=== PATIENT | male | born 1950 | race African-American/Black ===

== ENCOUNTER 2021-06-24 15:56 | Inpatient (IN) | payer SELFPAY ==
[~2021-06-24] VITALS: Ht 190.5 cm; Wt 119.6 kg
--- NOTE | 2021-06-24 16:46 | PHYS DOC ---
Past Medical History Past Surgical History: No Surgical History General Adult EDM: Chief Complaint: LOWER EXTREMITY EDEMA HPI: HPI: Patient is a 71 year old male who presents for evaluation of several weeks of progressively worsening all over body swelling. He has not seen a physician in almost 50 years. He went to the walk-in clinic at [facility], and he was recommended to be seen in the ER. I spoke with the PA who evaluated him, sent him to the ER for further evaluation and treatment. The patient reports that he has felt short of breath for several weeks. He denies chest pain. He reports increased swelling of his legs, abdomen, arms and also his scrotum and his penis. He denies any urinary symptoms. He denies cough. He does report exertional dyspnea. He denies fevers or chills. He does not take any uiso-dwn-hsuzgam medications, no prescription medications. He denies use of alcohol, tobacco or illicit drugs. Review of Systems: Review of Systems: See HPI Heart Score: C/O Chest Pain: No Risk Factors: Risk Factors: DM, Current or recent (<one month) smoker, HTN, HLP, family history of CAD, obesity. Risk Scores: Score 0 - 3: 2.5% MACE over next 6 weeks - Discharge Home Score 4 - 6: 20.3% MACE over next 6 weeks - Admit for Clinical Observation Score 7 - 10: 72.7% MACE over next 6 weeks - Early Invasive Strategies Physical Exam: PE: Constitutional: Well developed, well nourished, chronically ill-appearing male, no acute distress, nontoxic HENT: Normocephalic, atraumatic, oropharynx is patent and clear. Mucous membranes are moist Eyes: Clear mildly icteric. No conjunctival pallor. No ocular injury noted. Neck: Normal range of motion, no tenderness, supple, no stridor. Trachea is midline. JVD noted. Cardiovascular:Heart rate regular rhythm, 2 radial and +2 posterior tibial pulses bilaterally Lungs & Thorax: Diminished breath sounds in bilateral bases. Fine bibasilar rales. Upper and midlung armstrong are clear to auscultation bilaterally, no wheezes, no stridor. Mild tachypnea. No retractions. Abdomen: Abdomen is tense, diffuse pitting edema of the abdominal wall, moderate abdominal distention, hypoactive bowel sounds, hepatomegaly, no focal tenderness. : Marked scrotal and penis edema. Urethral meatus is patent. No tenderness. Skin: Warm, dry, no erythema, no rash. Diffuse pitting edema of upper and lower extremities, abdomen, chest, scrotum and penis. Back: No tenderness, no CVA tenderness. Full range of motion. Extremities: No tenderness, no cyanosis, no clubbing, ROM intact, heart bilateral, symmetric pitting lower extremity edema, all the way up to his thighs. Neurologic: Alert and oriented X 3, normal motor function, normal sensory function, no focal deficits noted. [] Psychologic: Affect normal, judgement normal, mood normal. He is very pleasant and cooperative. Current Patient Data: Vital Signs: Vital Signs Date Time Temp Pulse Resp B/P (MAP) Pulse Ox O2 Delivery O2 Flow Rate FiO2 06/24/21 16:20 97.5 81 18 145/70 (95) 100 Room Air 97.5 EKG: EKG: [] Radiology/Procedures: Radiology/Procedures: EKG is interpreted at 1719 Rhythm is sinus Rate is 79 bpm Gaffney is left No STEMI Course & Med Decision Making: Course & Med Decision Making Pertinent Labs and Imaging studies reviewed. (See chart for details) I was able to place an ultrasound-guided 18-gauge in his left AC. I obtained blood work for the nursing staff. I discussed the findings, differential diagnosis and plan of care with the patient. I have recommended hospitalization. IV furosemide is given. The patient is comfortable with the plan of care. He is excepted for admission by Dr. Victor. Bam Disclaimer: Bam Disclaimer: This electronic medical record was generated, in whole or in part, using a voice recognition dictation system. Departure Departure Impression: Primary Impression: Anasarca Additional Impressions: Congestive heart failure Qualified Codes: I50.9 - Heart failure, unspecified Renal insufficiency Disposition: ADMITTED INPATIENT Admitting Physician: LUIS (Dr. Victor) Condition: GUARDED EMMAYOLA DO Jun 24, 2021 16:45
[2021-06-24 18:16] LABS: BASO % 0 % (0-3); EOS # 0.1 x10^3/uL (0.0-0.7); EOS % 1 % (0-3); HEMATOCRIT 31.7 % (39.0-53.0); HEMOGLOBIN 9.9 g/dL (13.0-17.5); LYMPH # 0.7 x10^3/uL (1.0-4.8); LYMPH % 10 % (24-48); MEAN CORPUSCULAR HEMOGLOBIN 24 pg (25-35); MEAN CORPUSCULAR HGB CONC 31 g/dL (31-37); MEAN CORPUSCULAR VOLUME 77 fL (79-100); MONO # 0.5 x10^3/uL (0.0-1.1); MONO % 8 % (0-9); NEUT # 5.6 x10^3/uL (1.8-7.7); NEUT % 82 % (31-73); PLATELET COUNT 164 x10^3/uL (140-400); RED BLOOD COUNT 4.14 x10^6/uL (4.30-5.70); RED CELL DISTRIBUTION WIDTH 20.3 % (11.5-14.5); WHITE BLOOD COUNT 6.9 x10^3/uL (4.0-11.0)
--- NOTE | 2021-06-24 18:17 | RAD ---
XR CHEST 1V 06/24/2021 5:04 PM INDICATION: Dyspnea, anasarca COMPARISON: None available TECHNIQUE: Portable frontal view of the chest is provided. FINDINGS: The cardiomediastinal silhouette is enlarged. Lungs are clear. There are no significant pleural effusions. There is no pulmonary vascular congestion. No pneumothora x. No suspicious osseous abnormality. IMPRESSION: Cardiomegaly without focal airspace consolidation. Electronically signed by: Shawna Galaviz MD (06/24/2021 6:15 PM) [facility]
[2021-06-24 18:19] LABS: CALCIUM 8.9 mg/dL (8.5-10.1); CREATININE 1.9 mg/dL (0.7-1.3); GFR 42.4; POTASSIUM 4.2 mmol/L (3.5-5.1)
[2021-06-24 18:20] LABS: PROTHROMBIN TIME PATIENT 15.5 SEC (11.7-14.0)
[2021-06-24 18:25] LABS: ALBUMIN 3.5 g/dL (3.4-5.0); ALBUMIN/GLOBULIN RATIO 1.1 (1.0-1.7); MAGNESIUM 2.3 mg/dL (1.8-2.4); PHOSPHORUS 4.1 mg/dL (2.6-4.7); TOTAL BILIRUBIN 2.1 mg/dL (0.2-1.0); TOTAL PROTEIN 6.7 g/dL (6.4-8.2)
[2021-06-24 19:45] VITALS: BP 156/83
[2021-06-24 20:12] LABS: PLT ESTIMATE ADEQUATE (ADEQUATE)
[2021-06-24 20:13] LABS: ANISOCYTOSIS MOD; HYPOCHROMIA SLIGHT; POIKILOCYTOSIS MOD
[2021-06-24 20:14] LABS: BIZZARE CELLS FEW; OVALOCYTES MOD; SCHISTOCYTES FEW; TARGET CELLS FEW
[2021-06-24 20:15] LABS: POLYCHROMASIA SLIGHT; SPHEROCYTES FEW
[2021-06-24] MEDS ORDERED: MAGNESIUM HYDROXIDE 2,400 MG/30 ML ORAL.SUSP. PO PRN (21:45)
[2021-06-24] MEDS ORDERED: MAG HYDROX/ALUMINUM HYD/SIMETH 30 ML ORAL.SUSP PO PRN (21:45)
[2021-06-24] MEDS ORDERED: ACETAMINOPHEN 325 MG TABLET. PO PRN (21:45)
[2021-06-24] MEDS ORDERED: HYDROcodone/APAP 5/325MG 1 TAB TABLET PO PRN (21:45)
[2021-06-24] MEDS ORDERED: ONDANSETRON PF 4 MG/2 ML VIAL. IVP PRN (21:45)
[2021-06-24] MEDS ORDERED: hydrALAZINE 20 MG/ML VIAL. IVP PRN (21:45)
[2021-06-24] MEDS ORDERED: CALCIUM CARBONATE 500 MG TAB.CHEW PO PRN (21:45)
[2021-06-24] MEDS ORDERED: ZOLPIDEM 5 MG TABLET. PO PRN (21:45)
[2021-06-24] MEDS ORDERED: FUROSEMIDE 20 MG/2 ML VIAL. IVP ONE (21:45)
--- NOTE | 2021-06-24 21:53 | PDOC1 ---
History and Physical Date of Admission Date of Admission DATE: 06/24/21 TIME: 21:39 Identification/Chief Complaint Chief Complaint Anasarca Source Source: Patient History of Present Illness History of Present Illness Patient is 71-year-old male with no stated past medical history, who presents with complaints of generalized swelling over the past couple weeks. Patient also reports dyspnea on exertion and progressive weakness. States he has not seen a physician in over 50 years. Today he finally went to [facility] walk-in clinic, and was referred to [facility] ED. Labs on admission showed hemoglobin 9.9, hematocrit 31.7, BUN 27, creatinine 1.9, BNP 28,988. Chest x-ray showed cardiomegaly without focal airspace consolidation. Will admit patient for further medical management. Past Medical History Past Medical History No stated past medical history Past Surgical History Past Surgical History Left foot surgery Family History Family History Renal failure Social History Smoke: Quit ALCOHOL: none Drugs: None Current Problem List Problem List Problems Medical Problems: (1) Anasarca Status: Acute (2) Congestive heart failure Status: Acute (3) Renal insufficiency Status: Acute Current Medications Current Medications Current Medications Furosemide (Lasix) 20 mg 1X ONCE IVP ; Start 06/24/21 at 19:15; Stop 06/24/21 at 19:16; Status UNV Allergies Allergies: Coded Allergies: No Known Drug Allergies (Unverified , 06/24/21) ROS Review of System GENERAL: No history of weight change, weakness or fevers. SKIN: No bruising, hair changes or rashes. EYES: No blurred, double or loss of vision. NOSE AND THROAT: No history of nosebleeds, hoarseness or sore throat. HEART: Denies chest pain, denies palpitations. LUNGS: Denies cough, hemoptysis, or wheezing. Dyspnea on exertion. GASTROINTESTINAL: Denies nausea, vomiting, abdominal pain. GENITOURINARY: Denies dysuria, frequency, urgency, hematuria. NEUROLOGIC: Denies history of numbness, tingling, tremor or weakness. PSYCHIATRIC: Denies anxiety, denies depression. ENDOCRINE: No history of heat or cold intolerance, polyuria or polydipsia. EXTREMITIES: Swelling of bilateral legs and bilateral hands. Musculoskeletal weakness. Denies joint pain, pain on walking or stiffness. Physical Exam Physical Exam General: Alert, Oriented X3, Cooperative, no distress HEENT: Atraumatic, EOMI Lungs: Decreased breath sounds bilaterally, bibasilar rales Heart: RRR, no rubs Cardiovascular: S1, S2 Abdomen: Normal bowel sounds, Soft, No tenderness Extremities: +2 bilateral leg edema Skin: No breakdown, No significant lesion Neuro: Normal speech, Sensation intact Psych/Mental Status: Mental status NL, Mood NL Vitals Vitals Vital Signs Date Time Temp Pulse Resp B/P (MAP) Pulse Ox O2 Delivery O2 Flow Rate FiO2 06/24/21 20:00 Room Air 06/24/21 19:45 97.1 82 20 156/83 (107) 100 97.1 Labs Labs Laboratory Tests Test 06/24/21 17:55 White Blood Count 6.9 x10^3/uL (4.0-11.0) Red Blood Count 4.14 x10^6/uL (4.30-5.70) Hemoglobin 9.9 g/dL (13.0-17.5) Hematocrit 31.7 % (39.0-53.0) Mean Corpuscular Volume 77 fL (79-100) Mean Corpuscular Hemoglobin 24 pg (25-35) Mean Corpuscular Hemoglobin Concent 31 g/dL (31-37) Red Cell Distribution Width 20.3 % (11.5-14.5) Platelet Count 164 x10^3/uL (140-400) Neutrophils (%) (Auto) 82 % (31-73) Lymphocytes (%) (Auto) 10 % (24-48) Monocytes (%) (Auto) 8 % (0-9) Eosinophils (%) (Auto) 1 % (0-3) Basophils (%) (Auto) 0 % (0-3) Neutrophils # (Auto) 5.6 x10^3/uL (1.8-7.7) Lymphocytes # (Auto) 0.7 x10^3/uL (1.0-4.8) Monocytes # (Auto) 0.5 x10^3/uL (0.0-1.1) Eosinophils # (Auto) 0.1 x10^3/uL (0.0-0.7) Basophils # (Auto) 0.0 x10^3/uL (0.0-0.2) Platelet Estimate Adequate (ADEQUATE) Polychromasia Slight Hypochromasia Slight Poikilocytosis Mod Anisocytosis Mod Spherocytes Few Target Cells Few Ovalocytes Mod Schistocytes Few RBC Morphology Bizarre Forms Few Prothrombin Time 15.5 SEC (11.7-14.0) Prothromb Time International Ratio 1.3 (0.8-1.1) Activated Partial Thromboplast Time 29 SEC (24-38) Sodium Level 145 mmol/L (136-145) Potassium Level 4.2 mmol/L (3.5-5.1) Chloride Level 111 mmol/L (98-107) Carbon Dioxide Level 23 mmol/L (21-32) Anion Gap 11 (6-14) Blood Urea Nitrogen 27 mg/dL (8-26) Creatinine 1.9 mg/dL (0.7-1.3) Estimated GFR (Cockcroft-Gault) 42.4 BUN/Creatinine Ratio 14 (6-20) Glucose Level 85 mg/dL (70-99) Calcium Level 8.9 mg/dL (8.5-10.1) Phosphorus Level 4.1 mg/dL (2.6-4.7) Magnesium Level 2.3 mg/dL (1.8-2.4) Total Bilirubin 2.1 mg/dL (0.2-1.0) Aspartate Amino Transf (AST/SGOT) 27 U/L (15-37) Alanine Aminotransferase (ALT/SGPT) 17 U/L (16-63) Alkaline Phosphatase 41 U/L (46-116) Creatine Kinase 120 U/L (39-308) Troponin I High Sensitivity 56 ng/L (4-75) CW-Cpj-M-Type Natriuretic Peptide 54070 pg/mL (0-124) Total Protein 6.7 g/dL (6.4-8.2) Albumin 3.5 g/dL (3.4-5.0) Albumin/Globulin Ratio 1.1 (1.0-1.7) Laboratory Tests Test 06/24/21 17:55 White Blood Count 6.9 x10^3/uL (4.0-11.0) Red Blood Count 4.14 x10^6/uL (4.30-5.70) Hemoglobin 9.9 g/dL (13.0-17.5) Hematocrit 31.7 % (39.0-53.0) Mean Corpuscular Volume 77 fL (79-100) Mean Corpuscular Hemoglobin 24 pg (25-35) Mean Corpuscular Hemoglobin Concent 31 g/dL (31-37) Red Cell Distribution Width 20.3 % (11.5-14.5) Platelet Count 164 x10^3/uL (140-400) Neutrophils (%) (Auto) 82 % (31-73) Lymphocytes (%) (Auto) 10 % (24-48) Monocytes (%) (Auto) 8 % (0-9) Eosinophils (%) (Auto) 1 % (0-3) Basophils (%) (Auto) 0 % (0-3) Neutrophils # (Auto) 5.6 x10^3/uL (1.8-7.7) Lymphocytes # (Auto) 0.7 x10^3/uL (1.0-4.8) Monocytes # (Auto) 0.5 x10^3/uL (0.0-1.1) Eosinophils # (Auto) 0.1 x10^3/uL (0.0-0.7) Basophils # (Auto) 0.0 x10^3/uL (0.0-0.2) Platelet Estimate Adequate (ADEQUATE) Polychromasia Slight Hypochromasia Slight Poikilocytosis Mod Anisocytosis Mod Spherocytes Few Target Cells Few Ovalocytes Mod Schistocytes Few RBC Morphology Bizarre Forms Few Prothrombin Time 15.5 SEC (11.7-14.0) Prothromb Time International Ratio 1.3 (0.8-1.1) Activated Partial Thromboplast Time 29 SEC (24-38) Sodium Level 145 mmol/L (136-145) Potassium Level 4.2 mmol/L (3.5-5.1) Chloride Level 111 mmol/L (98-107) Carbon Dioxide Level 23 mmol/L (21-32) Anion Gap 11 (6-14) Blood Urea Nitrogen 27 mg/dL (8-26) Creatinine 1.9 mg/dL (0.7-1.3) Estimated GFR (Cockcroft-Gault) 42.4 BUN/Creatinine Ratio 14 (6-20) Glucose Level 85 mg/dL (70-99) Calcium Level 8.9 mg/dL (8.5-10.1) Phosphorus Level 4.1 mg/dL (2.6-4.7) Magnesium Level 2.3 mg/dL (1.8-2.4) Total Bilirubin 2.1 mg/dL (0.2-1.0) Aspartate Amino Transf (AST/SGOT) 27 U/L (15-37) Alanine Aminotransferase (ALT/SGPT) 17 U/L (16-63) Alkaline Phosphatase 41 U/L (46-116) Creatine Kinase 120 U/L (39-308) Troponin I High Sensitivity 56 ng/L (4-75) PY-Zgb-D-Type Natriuretic Peptide 23229 pg/mL (0-124) Total Protein 6.7 g/dL (6.4-8.2) Albumin 3.5 g/dL (3.4-5.0) Albumin/Globulin Ratio 1.1 (1.0-1.7) Images Images PATIENT: PADMINI PATELCCOUNT: [id number] : 1950 LOCATION: ER AGE: 71 SEX: M EXAM STATUS: REG ER ORD. PHYSICIAN: YOLA CARTER DO REASON: dyspnea, anasarca PROCEDURE: PORTABLE CHEST 1V XR CHEST 1V 06/24/2021 5:04 PM INDICATION: Dyspnea, anasarca COMPARISON: None available TECHNIQUE: Portable frontal view of the chest is provided. FINDINGS: The cardiomediastinal silhouette is enlarged. Lungs are clear. There are no significant pleural effusions. There is no pulmonary vascular congestion. No pneumothorax. No suspicious osseous abnormality. IMPRESSION: Cardiomegaly without focal airspace consolidation. VTE Prophylaxis Ordered VTE Prophylaxis Devices: No VTE Pharmacological Prophylaxi: Yes Assessment/Plan Assessment/Plan New onset CHF Normocytic anemia [place] Plan: Patient received dose of IV Lasix in the ED Will place consultation to cardiology Echocardiogram pending If his renal function began to worsen with IV Lasix we will need to consult nephrology for CKD 3b in setting of heart failure FEN - Cardiac diet PPX - Heparin DNR/patient names his sister (Sarah Menchaca) as surrogate decision-maker Dispo - inpatient for above Justifications for Admission Other Justification ALEX MASSEY MD Jun 24, 2021 21:53
[2021-06-24] MEDS: HEPARIN for SUB-Q USE 5,000 UNIT/ML VIAL. SQ SCH (22:22)
[2021-06-24 23:26] VITALS: BP 147/81
[2021-06-25 03:10] VITALS: BP 170/85
[2021-06-25 03:26] LABS: BASO % 0 % (0-3); EOS % 1 % (0-3); HEMATOCRIT 33.2 % (39.0-53.0); HEMOGLOBIN 10.5 g/dL (13.0-17.5); LYMPH # 0.6 x10^3/uL (1.0-4.8); LYMPH % 8 % (24-48); MEAN CORPUSCULAR HEMOGLOBIN 24 pg (25-35); MEAN CORPUSCULAR HGB CONC 32 g/dL (31-37); MEAN CORPUSCULAR VOLUME 77 fL (79-100); MONO # 0.4 x10^3/uL (0.0-1.1); MONO % 6 % (0-9); NEUT % 85 % (31-73); PLATELET COUNT 168 x10^3/uL (140-400); RED CELL DISTRIBUTION WIDTH 19.5 % (11.5-14.5); WHITE BLOOD COUNT 7.1 x10^3/uL (4.0-11.0)
[2021-06-25 04:15] LABS: CALCIUM 9.2 mg/dL (8.5-10.1); CREATININE 1.9 mg/dL (0.7-1.3); GFR 42.4; POTASSIUM 4.1 mmol/L (3.5-5.1)
[2021-06-25 04:20] LABS: CHOLESTEROL/HDL RATIO 4.1
[2021-06-25] MEDS: HEPARIN for SUB-Q USE 5,000 UNIT/ML VIAL. SQ SCH ×3 (05:37→22:32)
[2021-06-25 07:00] VITALS: BP 167/86
[2021-06-25 10:46] VITALS: BP 120/81
--- NOTE | 2021-06-25 10:47 | PDOC ---
[employer] PROGRESS NOTE Date of Service DOS: DATE: 06/25/21 TIME: 10:30 Chief Complaint Chief Complaint New onset CHF Normocytic anemia [place] - likely vasomotor nephropathy. Will check renal ultrasound for obstructive or medical renal disease Plan: Will place consultation to cardiology Echocardiogram pending If his renal function began to worsen with IV Lasix we will need to consult nephrology for CKD 3b in setting of heart failure FEN - Cardiac diet PPX - Heparin DNR/patient names his sister (Sarah Menchaca) as surrogate decision-maker Dispo - inpatient for above History of Present Illness History of Present Illness Patient is 71-year-old male with no stated past medical history, who presents with complaints of generalized swelling over the past couple weeks. Patient also reports dyspnea on exertion and progressive weakness. States he has not seen a physician in over 50 years. Today he finally went to [facility] walk-in clinic, and was referred to [facility] ED. Labs on admission showed hemoglobin 9.9, hematocrit 31.7, BUN 27, creatinine 1.9, BNP 28,988. Chest x-ray showed cardiomegaly without focal airspace consolidation. Will admit patient for further medical management. 06/25: Notes historically he has a younger brother that of kidney disease father and older brother had heart disease. Still short of breath requiring sitting up. Legs are still swollen. Creatinine the same. Awaiting echocardiogram and further IV diuresis will order renal ultrasound as patient notes no history of renal disease though is the first time he seen a physician in a long time. By my interpretation EKG sinus rate of 79 bpm [place] interval 310, leftward axis meets criteria for LVH T wave flattening and anterior and inferior leads no T WI, no ST segment elevations or depressions. QTC 444 Vitals/I&O Vitals/I&O: Vital Signs Date Time Temp Pulse Resp B/P (MAP) Pulse Ox O2 Delivery O2 Flow Rate FiO2 06/25/21 08:00 Room Air 06/25/21 07:00 97.8 94 16 167/86 (113) 99 97.8 I & O 06/24/21 06/24/21 06/25/21 15:00 23:00 07:00 Intake Total 50 ml 60 ml Output Total 100 ml 2100 ml Balance -50 ml -2040 ml Physical Exam General: Alert, Oriented X3, Cooperative, mild distress Heart: Regular rate, Normal S1, Normal S2 Lungs: Crackles Abdomen: Normal bowel sounds, Soft, No tenderness, No hepatosplenomegaly Extremities: No clubbing, No cyanosis, Normal pulses Skin: No rashes, No breakdown, No significant lesion Labs Labs: Laboratory Tests Test 06/24/21 17:55 06/25/21 03:00 White Blood Count 6.9 x10^3/uL (4.0-11.0) 7.1 x10^3/uL (4.0-11.0) Red Blood Count 4.14 x10^6/uL (4.30-5.70) 4.30 x10^6/uL (4.30-5.70) Hemoglobin 9.9 g/dL (13.0-17.5) 10.5 g/dL (13.0-17.5) Hematocrit 31.7 % (39.0-53.0) 33.2 % (39.0-53.0) Mean Corpuscular Volume 77 fL (79-100) 77 fL (79-100) Mean Corpuscular Hemoglobin 24 pg (25-35) 24 pg (25-35) Mean Corpuscular Hemoglobin Concent 31 g/dL (31-37) 32 g/dL (31-37) Red Cell Distribution Width 20.3 % (11.5-14.5) 19.5 % (11.5-14.5) Platelet Count 164 x10^3/uL (140-400) 168 x10^3/uL (140-400) Neutrophils (%) (Auto) 82 % (31-73) 85 % (31-73) Lymphocytes (%) (Auto) 10 % (24-48) 8 % (24-48) Monocytes (%) (Auto) 8 % (0-9) 6 % (0-9) Eosinophils (%) (Auto) 1 % (0-3) 1 % (0-3) Basophils (%) (Auto) 0 % (0-3) 0 % (0-3) Neutrophils # (Auto) 5.6 x10^3/uL (1.8-7.7) 6.0 x10^3/uL (1.8-7.7) Lymphocytes # (Auto) 0.7 x10^3/uL (1.0-4.8) 0.6 x10^3/uL (1.0-4.8) Monocytes # (Auto) 0.5 x10^3/uL (0.0-1.1) 0.4 x10^3/uL (0.0-1.1) Eosinophils # (Auto) 0.1 x10^3/uL (0.0-0.7) 0.0 x10^3/uL (0.0-0.7) Basophils # (Auto) 0.0 x10^3/uL (0.0-0.2) 0.0 x10^3/uL (0.0-0.2) Platelet Estimate Adequate (ADEQUATE) Polychromasia Slight Hypochromasia Slight Poikilocytosis Mod Anisocytosis Mod Spherocytes Few Target Cells Few Ovalocytes Mod Schistocytes Few RBC Morphology Bizarre Forms Few Prothrombin Time 15.5 SEC (11.7-14.0) Prothromb Time International Ratio 1.3 (0.8-1.1) Activated Partial Thromboplast Time 29 SEC (24-38) Sodium Level 145 mmol/L (136-145) 143 mmol/L (136-145) Potassium Level 4.2 mmol/L (3.5-5.1) 4.1 mmol/L (3.5-5.1) Chloride Level 111 mmol/L (98-107) 110 mmol/L (98-107) Carbon Dioxide Level 23 mmol/L (21-32) 21 mmol/L (21-32) Anion Gap 11 (6-14) 12 (6-14) Blood Urea Nitrogen 27 mg/dL (8-26) 30 mg/dL (8-26) Creatinine 1.9 mg/dL (0.7-1.3) 1.9 mg/dL (0.7-1.3) Estimated GFR (Cockcroft-Gault) 42.4 42.4 BUN/Creatinine Ratio 14 (6-20) Glucose Level 85 mg/dL (70-99) 75 mg/dL (70-99) Calcium Level 8.9 mg/dL (8.5-10.1) 9.2 mg/dL (8.5-10.1) Phosphorus Level 4.1 mg/dL (2.6-4.7) Magnesium Level 2.3 mg/dL (1.8-2.4) Total Bilirubin 2.1 mg/dL (0.2-1.0) Aspartate Amino Transf (AST/SGOT) 27 U/L (15-37) Alanine Aminotransferase (ALT/SGPT) 17 U/L (16-63) Alkaline Phosphatase 41 U/L (46-116) Creatine Kinase 120 U/L (39-308) Troponin I High Sensitivity 56 ng/L (4-75) NB-Ocu-J-Type Natriuretic Peptide 66522 pg/mL (0-124) Total Protein 6.7 g/dL (6.4-8.2) Albumin 3.5 g/dL (3.4-5.0) Albumin/Globulin Ratio 1.1 (1.0-1.7) Triglycerides Level 80 mg/dL (0-150) Cholesterol Level 138 mg/dL (0-200) LDL Cholesterol, Calculated 88 mg/dL (0-100) VLDL Cholesterol, Calculated 16 mg/dL (0-40) Non-HDL Cholesterol Calculated 104 mg/dL (0-129) HDL Cholesterol 34 mg/dL (40-60) Cholesterol/HDL Ratio 4.1 Assessment and Plan Assessmemt and Plan Problems Medical Problems: (1) Anasarca Status: Acute (2) Congestive heart failure Status: Acute (3) Renal insufficiency Status: Acute Comment Review of Relevant I have reviewed the following items delfina (where applicable) has been applied. Medications: Current Medications Medications (Trade) Dose Ordered Sig/Vidhi Route PRN Reason Start Time Stop Time Status Last Admin Dose Admin Furosemide (Lasix) 20 mg 1X ONCE IVP 06/24/21 21:45 06/24/21 21:46 DC 06/24/21 22:21 Hydralazine HCl (Apresoline Inj) 10 mg PRN Q4HRS PRN IVP ELEVATED BP, SEE COMMENTS 06/24/21 21:45 06/25/21 02:52 Heparin Sodium (Porcine) (Heparin Sodium) 5,000 unit Q8HRS SQ 06/24/21 22:00 06/25/21 05:37 Justifications for Admission Other Justification MARGOT BROWN MD Jun 25, 2021 10:47
[2021-06-25] MEDS ORDERED: FUROSEMIDE 40 MG/4 ML VIAL. IVP ONE (11:00)
--- NOTE | 2021-06-25 11:07 | PDOC2 ---
CONSULT Date of Consult Date of Consult DATE: 06/25/21 TIME: 11:06 Reason for Consult Reason for Consult: Congestive heart failure Referring Physician Referring Physician: Dr. Victor Identification/Chief Complaint Chief Complaint Shortness of breath Source Source: Chart review, Patient History of Present Illness Reason for Visit: 71-year-old male without any previous cardiac history presented with approximately 2-month history of progressive shortness of breath with exertion and bilateral lower extremity edema. He denied any chest pain, palpitations or syncope. He was diagnosed with congestive heart failure and admitted for further management Past Medical History Cardiovascular: No pertinent hx Past Surgical History Past Surgical History: No pertinent history Family History Family History No history of premature coronary artery disease Social History No ALCOHOL: none Drugs: None Current Problem List Problem List Problems Medical Problems: (1) Anasarca Status: Acute (2) Congestive heart failure Status: Acute (3) Renal insufficiency Status: Acute Current Medications Current Medications Current Medications Furosemide (Lasix) 20 mg 1X ONCE IVP Last administered on 06/24/21at 22:21; Start 06/24/21 at 21:45; Stop 06/24/21 at 21:46; Status DC Hydralazine HCl (Apresoline Inj) 10 mg PRN Q4HRS PRN IVP ELEVATED BP, SEE COMMENTS Last administered on 06/25/21at 02:52; Start 06/24/21 at 21:45 Ondansetron HCl (Zofran) 4 mg PRN Q6HRS PRN IVP NAUSEA/VOMITING; Start 06/24/21 at 21:45 Al Hydroxide/Mg Hydroxide (Mylanta Plus Xs) 30 ml PRN Q3HRS PRN PO HEARTBURN / GAS; Start 06/24/21 at 21:45 Calcium Carbonate/ Glycine (Tums) 500 mg PRN Q3HRS PRN PO UPSET STOMACH; Start 06/24/21 at 21:45 Zolpidem Tartrate (Ambien) 5 mg PRN QHS PRN PO INSOMNIA, MAY REPEAT IN 1HR; Start 06/24/21 at 21:45 Acetaminophen/ Hydrocodone Bitart (Lortab 5/325) 1 tab PRN Q4HRS PRN PO MILD PAIN 1-3; Start 06/24/21 at 21:45 Acetaminophen (Tylenol) 650 mg PRN Q6HRS PRN PO Headaches, Temp > 101.5F; Start 06/24/21 at 21:45 Magnesium Hydroxide (Milk Of Magnesia) 2,400 mg PRN Q12HR PRN PO CONSTIPATION; Start 06/24/21 at 21:45 Heparin Sodium (Porcine) (Heparin Sodium) 5,000 unit Q8HRS SQ Last administered on 06/25/21at 05:37; Start 06/24/21 at 22:00 Furosemide (Lasix) 40 mg 1X ONCE IVP ; Start 06/25/21 at 11:00; Stop 06/25/21 at 11:01; Status DC Allergies Allergies: Coded Allergies: No Known Drug Allergies (Unverified , 06/24/21) ROS PSYCHOLOGICAL ROS: No: Hallucinations Eyes: No Loss of vision HEENT: No: Epistaxis Respiratory: YES: Shortness of breath; No: Hemoptysis Cardiovascular: No Chest Pain Gastrointestinal: No Vomiting Genitourinary: No Hematuria Neurological: No Seizures Skin: No Rash Physical Exam General: Alert, Oriented X3 HEENT: Atraumatic Lungs: Other (Bilateral basal crepitations) Heart: Regular rate Abdomen: Soft Extremities: Other (1-2+ pitting edema) Neuro: Normal speech Psych/Mental Status: Mental status NL Vitals VITALS Vital Signs Date Time Temp Pulse Resp B/P (MAP) Pulse Ox O2 Delivery O2 Flow Rate FiO2 06/25/21 10:46 99.9 98 16 120/81 (94) 98 Room Air 99.9 Labs Labs Laboratory Tests Test 06/24/21 17:55 06/25/21 03:00 White Blood Count 6.9 x10^3/uL (4.0-11.0) 7.1 x10^3/uL (4.0-11.0) Red Blood Count 4.14 x10^6/uL (4.30-5.70) 4.30 x10^6/uL (4.30-5.70) Hemoglobin 9.9 g/dL (13.0-17.5) 10.5 g/dL (13.0-17.5) Hematocrit 31.7 % (39.0-53.0) 33.2 % (39.0-53.0) Mean Corpuscular Volume 77 fL (79-100) 77 fL (79-100) Mean Corpuscular Hemoglobin 24 pg (25-35) 24 pg (25-35) Mean Corpuscular Hemoglobin Concent 31 g/dL (31-37) 32 g/dL (31-37) Red Cell Distribution Width 20.3 % (11.5-14.5) 19.5 % (11.5-14.5) Platelet Count 164 x10^3/uL (140-400) 168 x10^3/uL (140-400) Neutrophils (%) (Auto) 82 % (31-73) 85 % (31-73) Lymphocytes (%) (Auto) 10 % (24-48) 8 % (24-48) Monocytes (%) (Auto) 8 % (0-9) 6 % (0-9) Eosinophils (%) (Auto) 1 % (0-3) 1 % (0-3) Basophils (%) (Auto) 0 % (0-3) 0 % (0-3) Neutrophils # (Auto) 5.6 x10^3/uL (1.8-7.7) 6.0 x10^3/uL (1.8-7.7) Lymphocytes # (Auto) 0.7 x10^3/uL (1.0-4.8) 0.6 x10^3/uL (1.0-4.8) Monocytes # (Auto) 0.5 x10^3/uL (0.0-1.1) 0.4 x10^3/uL (0.0-1.1) Eosinophils # (Auto) 0.1 x10^3/uL (0.0-0.7) 0.0 x10^3/uL (0.0-0.7) Basophils # (Auto) 0.0 x10^3/uL (0.0-0.2) 0.0 x10^3/uL (0.0-0.2) Platelet Estimate Adequate (ADEQUATE) Polychromasia Slight Hypochromasia Slight Poikilocytosis Mod Anisocytosis Mod Spherocytes Few Target Cells Few Ovalocytes Mod Schistocytes Few RBC Morphology Bizarre Forms Few Prothrombin Time 15.5 SEC (11.7-14.0) Prothromb Time International Ratio 1.3 (0.8-1.1) Activated Partial Thromboplast Time 29 SEC (24-38) Sodium Level 145 mmol/L (136-145) 143 mmol/L (136-145) Potassium Level 4.2 mmol/L (3.5-5.1) 4.1 mmol/L (3.5-5.1) Chloride Level 111 mmol/L (98-107) 110 mmol/L (98-107) Carbon Dioxide Level 23 mmol/L (21-32) 21 mmol/L (21-32) Anion Gap 11 (6-14) 12 (6-14) Blood Urea Nitrogen 27 mg/dL (8-26) 30 mg/dL (8-26) Creatinine 1.9 mg/dL (0.7-1.3) 1.9 mg/dL (0.7-1.3) Estimated GFR (Cockcroft-Gault) 42.4 42.4 BUN/Creatinine Ratio 14 (6-20) Glucose Level 85 mg/dL (70-99) 75 mg/dL (70-99) Calcium Level 8.9 mg/dL (8.5-10.1) 9.2 mg/dL (8.5-10.1) Phosphorus Level 4.1 mg/dL (2.6-4.7) Magnesium Level 2.3 mg/dL (1.8-2.4) Total Bilirubin 2.1 mg/dL (0.2-1.0) Aspartate Amino Transf (AST/SGOT) 27 U/L (15-37) Alanine Aminotransferase (ALT/SGPT) 17 U/L (16-63) Alkaline Phosphatase 41 U/L (46-116) Creatine Kinase 120 U/L (39-308) Troponin I High Sensitivity 56 ng/L (4-75) ZD-Odp-A-Type Natriuretic Peptide 70190 pg/mL (0-124) Total Protein 6.7 g/dL (6.4-8.2) Albumin 3.5 g/dL (3.4-5.0) Albumin/Globulin Ratio 1.1 (1.0-1.7) Triglycerides Level 80 mg/dL (0-150) Cholesterol Level 138 mg/dL (0-200) LDL Cholesterol, Calculated 88 mg/dL (0-100) VLDL Cholesterol, Calculated 16 mg/dL (0-40) Non-HDL Cholesterol Calculated 104 mg/dL (0-129) HDL Cholesterol 34 mg/dL (40-60) Cholesterol/HDL Ratio 4.1 Laboratory Tests Test 06/24/21 17:55 06/25/21 03:00 White Blood Count 6.9 x10^3/uL (4.0-11.0) 7.1 x10^3/uL (4.0-11.0) Red Blood Count 4.14 x10^6/uL (4.30-5.70) 4.30 x10^6/uL (4.30-5.70) Hemoglobin 9.9 g/dL (13.0-17.5) 10.5 g/dL (13.0-17.5) Hematocrit 31.7 % (39.0-53.0) 33.2 % (39.0-53.0) Mean Corpuscular Volume 77 fL (79-100) 77 fL (79-100) Mean Corpuscular Hemoglobin 24 pg (25-35) 24 pg (25-35) Mean Corpuscular Hemoglobin Concent 31 g/dL (31-37) 32 g/dL (31-37) Red Cell Distribution Width 20.3 % (11.5-14.5) 19.5 % (11.5-14.5) Platelet Count 164 x10^3/uL (140-400) 168 x10^3/uL (140-400) Neutrophils (%) (Auto) 82 % (31-73) 85 % (31-73) Lymphocytes (%) (Auto) 10 % (24-48) 8 % (24-48) Monocytes (%) (Auto) 8 % (0-9) 6 % (0-9) Eosinophils (%) (Auto) 1 % (0-3) 1 % (0-3) Basophils (%) (Auto) 0 % (0-3) 0 % (0-3) Neutrophils # (Auto) 5.6 x10^3/uL (1.8-7.7) 6.0 x10^3/uL (1.8-7.7) Lymphocytes # (Auto) 0.7 x10^3/uL (1.0-4.8) 0.6 x10^3/uL (1.0-4.8) Monocytes # (Auto) 0.5 x10^3/uL (0.0-1.1) 0.4 x10^3/uL (0.0-1.1) Eosinophils # (Auto) 0.1 x10^3/uL (0.0-0.7) 0.0 x10^3/uL (0.0-0.7) Basophils # (Auto) 0.0 x10^3/uL (0.0-0.2) 0.0 x10^3/uL (0.0-0.2) Platelet Estimate Adequate (ADEQUATE) Polychromasia Slight Hypochromasia Slight Poikilocytosis Mod Anisocytosis Mod Spherocytes Few Target Cells Few Ovalocytes Mod Schistocytes Few RBC Morphology Bizarre Forms Few Prothrombin Time 15.5 SEC (11.7-14.0) Prothromb Time International Ratio 1.3 (0.8-1.1) Activated Partial Thromboplast Time 29 SEC (24-38) Sodium Level 145 mmol/L (136-145) 143 mmol/L (136-145) Potassium Level 4.2 mmol/L (3.5-5.1) 4.1 mmol/L (3.5-5.1) Chloride Level 111 mmol/L (98-107) 110 mmol/L (98-107) Carbon Dioxide Level 23 mmol/L (21-32) 21 mmol/L (21-32) Anion Gap 11 (6-14) 12 (6-14) Blood Urea Nitrogen 27 mg/dL (8-26) 30 mg/dL (8-26) Creatinine 1.9 mg/dL (0.7-1.3) 1.9 mg/dL (0.7-1.3) Estimated GFR (Cockcroft-Gault) 42.4 42.4 BUN/Creatinine Ratio 14 (6-20) Glucose Level 85 mg/dL (70-99) 75 mg/dL (70-99) Calcium Level 8.9 mg/dL (8.5-10.1) 9.2 mg/dL (8.5-10.1) Phosphorus Level 4.1 mg/dL (2.6-4.7) Magnesium Level 2.3 mg/dL (1.8-2.4) Total Bilirubin 2.1 mg/dL (0.2-1.0) Aspartate Amino Transf (AST/SGOT) 27 U/L (15-37) Alanine Aminotransferase (ALT/SGPT) 17 U/L (16-63) Alkaline Phosphatase 41 U/L (46-116) Creatine Kinase 120 U/L (39-308) Troponin I High Sensitivity 56 ng/L (4-75) JR-Bvm-W-Type Natriuretic Peptide 79197 pg/mL (0-124) Total Protein 6.7 g/dL (6.4-8.2) Albumin 3.5 g/dL (3.4-5.0) Albumin/Globulin Ratio 1.1 (1.0-1.7) Triglycerides Level 80 mg/dL (0-150) Cholesterol Level 138 mg/dL (0-200) LDL Cholesterol, Calculated 88 mg/dL (0-100) VLDL Cholesterol, Calculated 16 mg/dL (0-40) Non-HDL Cholesterol Calculated 104 mg/dL (0-129) HDL Cholesterol 34 mg/dL (40-60) Cholesterol/HDL Ratio 4.1 Assessment/Plan Assessment/Plan 1. Congestive heart failure, most probably acute on chronic diastolic. Patient diuresing well with Lasix. Check 2D echo to assess LV systolic function. Plan ischemic evaluation as an outpatient. 2. Acute renal insufficiency: Consider nephrology consultation. Monitor BUN/creatinine closely with diuresis 3. Normocytic anemia Thank you for your consultation MI PRICE MD Jun 25, 2021 11:07
[2021-06-25 15:00] VITALS: BP 168/86
--- NOTE | 2021-06-25 17:39 | EKG ---
[facility] [address] [place] [address] Test Date: 2021-06-24 Test Time: 17:03:43 Pat Name: PADMINI PATEL Department: Room: [facility] Gender: M Tower Director: : 1950 Requested By: YOLA CARTER Order Number: [id number] Reading MD: Miles Horton Measurements Intervals [place] Rate: 79 P: 0 AL: 310 QRS: -15 QRSD: 108 T: 43 QT: 386 QTc: 444 Interpretive Statements SINUS RHYTHM PROLONGED AL INTERVAL LEFTWARD AXIS LEFT VENTRICULAR HYPERTROPHY ABNORMAL ECG RI6.02 No previous ECG available for comparison Electronically Signed On 06-25-2021 21:18:06 CDT by Miles Horton
[2021-06-25 19:09] VITALS: BP 121/72
[2021-06-25 22:59] VITALS: BP 131/74
[2021-06-26 03:13] VITALS: BP 123/66
[2021-06-26 05:02] LABS: CALCIUM 8.6 mg/dL (8.5-10.1); CREATININE 1.9 mg/dL (0.7-1.3); GFR 42.4; POTASSIUM 3.6 mmol/L (3.5-5.1)
[2021-06-26] MEDS: HEPARIN for SUB-Q USE 5,000 UNIT/ML VIAL. SQ SCH ×3 (05:58→20:52)
[2021-06-26 07:00] VITALS: BP 129/74
--- NOTE | 2021-06-26 08:18 | PDOC ---
PROGRESS NOTES Date of Service: DATE: 06/26/21 TIME: 08:17 Subjective Subjective c/o dyspnea and weakness Objective Objective Vital Signs Date Time Temp Pulse Resp B/P (MAP) Pulse Ox O2 Delivery O2 Flow Rate FiO2 06/26/21 07:46 Room Air 06/26/21 03:13 97.7 68 20 123/66 (85) 99 97.7 Intake and Output 06/26/21 07:00 Intake Total 480 ml Output Total 2100 ml Balance -1620 ml Intake Oral 480 ml Output Urine Total 2100 ml # Bowel Movements 1 Physical Exam Abdomen: Soft Heart: Regular rate Extremities: Other (1-2+ pitting edema) General: Alert, Oriented X3 HEENT: Atraumatic Lungs: Other (Bilateral basal crepitations) Neuro: Normal speech Psych/Mental Status: Mental status NL Skin: No rashes, No breakdown, No significant lesion Assessment Assessment 1. Congestive heart failure, most probably acute on chronic diastolic. Improved but continues to be slightly decompensated. Continue Lasix IV. Check 2D echo to assess LV systolic function. Plan ischemic evaluation as an outpatient. 2. Acute renal insufficiency: Consider nephrology consultation. Monitor BUN/creatinine closely with diuresis 3. Normocytic anemia Plan Plan of Care Problems Medical Problems: (1) Anasarca Status: Acute (2) Congestive heart failure Status: Acute (3) Renal insufficiency Status: Acute Comment Review of Relevant I have reviewed the following items delfina (where applicable) has been applied. Labs Laboratory Tests Test 06/26/21 04:30 Sodium Level 143 mmol/L (136-145) Potassium Level 3.6 mmol/L (3.5-5.1) Chloride Level 111 mmol/L (98-107) Carbon Dioxide Level 23 mmol/L (21-32) Anion Gap 9 (6-14) Blood Urea Nitrogen 26 mg/dL (8-26) Creatinine 1.9 mg/dL (0.7-1.3) Estimated GFR (Cockcroft-Gault) 42.4 Glucose Level 83 mg/dL (70-99) Calcium Level 8.6 mg/dL (8.5-10.1) Medications Current Medications Furosemide (Lasix) 40 mg 1X ONCE IVP Last administered on 06/25/21at 11:44; Start 06/25/21 at 11:00; Stop 06/25/21 at 11:01; Status DC Vitals/I & O Vital Sign - Last 24 Hours 06/25/21 06/25/21 06/25/21 06/25/21 10:46 15:00 19:09 20:00 Temp 99.9 97.3 97.5 99.9 97.3 97.5 Pulse 98 90 80 Resp 16 16 21 B/P (MAP) 120/81 (94) 168/86 (113) 121/72 (88) Pulse Ox 98 98 99 O2 Delivery Room Air Room Air Room Air Room Air 06/25/21 06/26/21 06/26/21 22:59 03:13 07:46 Temp 97.1 97.7 97.1 97.7 Pulse 82 68 Resp 22 20 B/P (MAP) 131/74 (93) 123/66 (85) Pulse Ox 99 99 O2 Delivery Room Air Room Air Room Air Intake and Output 06/25/21 06/25/21 06/26/21 15:00 23:00 07:00 Intake Total 280 ml 200 ml Output Total 800 ml 1000 ml 300 ml Balance -800 ml -720 ml -100 ml MI PRICE MD Jun 26, 2021 08:18
--- NOTE | 2021-06-26 10:36 | PDOC ---
[employer] PROGRESS NOTE Date of Service DOS: DATE: 06/26/21 TIME: 10:35 Chief Complaint Chief Complaint New onset CHF Normocytic anemia [place] - likely vasomotor nephropathy. Will check renal ultrasound for obstructive or medical renal disease Plan: Will place consultation to cardiology Echocardiogram pending If his renal function began to worsen with IV Lasix we will need to consult nephrology for CKD 3b in setting of heart failure FEN - Cardiac diet PPX - Heparin DNR/patient names his sister (Sarah Menchaca) as surrogate decision-maker Dispo - inpatient for above History of Present Illness History of Present Illness Patient is 71-year-old male with no stated past medical history, who presents with complaints of generalized swelling over the past couple weeks. Patient also reports dyspnea on exertion and progressive weakness. States he has not seen a physician in over 50 years. Today he finally went to [facility] walk-in clinic, and was referred to [facility] ED. Labs on admission showed hemoglobin 9.9, hematocrit 31.7, BUN 27, creatinine 1.9, BNP 28,988. Chest x-ray showed cardiomegaly without focal airspace consolidation. Will admit patient for further medical management. 06/25: Notes historically he has a younger brother that of kidney disease father and older brother had heart disease. Still short of breath requiring sitting up. Legs are still swollen. Creatinine the same. Awaiting echocardiogram and further IV diuresis will order renal ultrasound as patient notes no history of renal disease though is the first time he seen a physician in a long time. By my interpretation EKG sinus rate of 79 bpm MS interval 310, leftward axis meets criteria for LVH T wave flattening and anterior and inferior leads no T WI, no ST segment elevations or depressions. QTC 444 06/26: Still swollen positive for orthopnea. Getting renal ultrasound currently. Still feeling weak. Vitals/I&O Vitals/I&O: Vital Signs Date Time Temp Pulse Resp B/P (MAP) Pulse Ox O2 Delivery O2 Flow Rate FiO2 06/26/21 07:46 Room Air 06/26/21 07:00 97.9 81 18 129/74 (92) 97 97.9 I & O 06/25/21 06/25/21 06/26/21 15:00 23:00 07:00 Intake Total 280 ml 200 ml Output Total 800 ml 1000 ml 300 ml Balance -800 ml -720 ml -100 ml Physical Exam General: Alert, Oriented X3 Heart: Regular rate Lungs: Crackles Abdomen: Soft Extremities: Other (1-2+ pitting edema) Skin: No rashes, No breakdown, No significant lesion Labs Labs: Laboratory Tests Test 06/26/21 04:30 Sodium Level 143 mmol/L (136-145) Potassium Level 3.6 mmol/L (3.5-5.1) Chloride Level 111 mmol/L (98-107) Carbon Dioxide Level 23 mmol/L (21-32) Anion Gap 9 (6-14) Blood Urea Nitrogen 26 mg/dL (8-26) Creatinine 1.9 mg/dL (0.7-1.3) Estimated GFR (Cockcroft-Gault) 42.4 Glucose Level 83 mg/dL (70-99) Calcium Level 8.6 mg/dL (8.5-10.1) Assessment and Plan Assessmemt and Plan Problems Medical Problems: (1) Anasarca Status: Acute (2) Congestive heart failure Status: Acute (3) Renal insufficiency Status: Acute Comment Review of Relevant I have reviewed the following items delfina (where applicable) has been applied. Medications: Current Medications Medications (Trade) Dose Ordered Sig/Vidhi Route PRN Reason Start Time Stop Time Status Last Admin Dose Admin Furosemide (Lasix) 40 mg 1X ONCE IVP 06/25/21 11:00 06/25/21 11:01 DC 06/25/21 11:44 Justifications for Admission Other Justification MARGOT BROWN MD Jun 26, 2021 10:36
[2021-06-26 10:38] LABS: BACTERIA,URINE FEW /HPF (0-FEW); RBC,URINE 0 /HPF (0-2); WBC,URINE 20-40 /HPF (0-4)
[2021-06-26 11:00] VITALS: BP 119/69
--- NOTE | 2021-06-26 11:46 | RAD ---
EXAM: RENAL ULTRASOUND CLINICAL HISTORY: Acute kidney injury. Urinary retention. COMPARISON: None available. TECHNIQUE: Ultrasound examination of the bilateral kidneys and urinary bladder was performed. FINDINGS: Right kidney: 11 x 4.5 x 5 cm Left kidney: Not able to be visualized secondary to bowel gas. Right kidney cortical thickness and echogenicity is within normal limits. No hydronephrosis. Visualization of both ureteral jets. Prevoid bladder volume of 40 cc measuring 5.1 x 2.6 x 6.1 cm. Th e prostate measures mildly enlarged at 4.2 x 4.6 x 4.1 cm. Relatively small volume ascites. Pleural effusion on the right. IMPRESSION: 1. Morphologically unremarkable right kidney which is normal in size at 11 cm longitudinal. No hydron ephrosis. The left kidney was not able to be visualized secondary to bowel gas. 2. Prevoid bladder volume of approximately 40 cc. No localized bladder wall thickening. Mild enlargem ent of the prostate at up to 4.6 cm. 3. Visualization of both ureteral jets. 4. Relatively small volume ascites. Right pleural effusion. Electronically signed by: REGIS SELF MD (06/26/2021 11:44 AM) [facility]
[2021-06-26] MEDS ORDERED: FUROSEMIDE 40 MG/4 ML VIAL. IVP ONE (13:30)
[2021-06-26] MEDS: FUROSEMIDE 40 MG/4 ML VIAL. IVP SCH (14:45)
[2021-06-26 19:51] VITALS: BP 123/60
[2021-06-26] MEDS: TAMSULOSIN 0.4 MG CAP.ER.24H. PO SCH (20:51)
[2021-06-26 23:14] VITALS: BP 127/70
[2021-06-27 03:07] LABS: HEMOGLOBIN A1C 5.5 % (4.8-5.6)
[2021-06-27 03:24] VITALS: BP 131/73
[2021-06-27 05:58] LABS: CALCIUM 8.4 mg/dL (8.5-10.1); CREATININE 1.7 mg/dL (0.7-1.3); GFR 48.2; POTASSIUM 3.5 mmol/L (3.5-5.1)
[2021-06-27] MEDS: HEPARIN for SUB-Q USE 5,000 UNIT/ML VIAL. SQ SCH ×3 (06:10→19:57)
[2021-06-27 07:00] VITALS: BP 136/72
[2021-06-27] MEDS ORDERED: PERFLUTREN PROTEIN-A MICROSPHR 0.22 MG/ML 3 ML VIAL. IV ONE (07:45)
[2021-06-27] MEDS: FUROSEMIDE 40 MG/4 ML VIAL. IVP SCH ×2 (08:18→15:27)
[2021-06-27 11:31] VITALS: BP 113/68
--- NOTE | 2021-06-27 15:09 | PDOC ---
[employer] PROGRESS NOTE Date of Service DOS: DATE: 06/27/21 TIME: 15:06 Chief Complaint Chief Complaint New onset CHF Normocytic anemia [place] - likely vasomotor nephropathy. Will check renal ultrasound for obstructive or medical renal disease Plan: Will place consultation to cardiology Echocardiogram pending If his renal function began to worsen with IV Lasix we will need to consult nephrology for CKD 3b in setting of heart failure FEN - Cardiac diet PPX - Heparin DNR/patient names his sister (Sarah Menchaca) as surrogate decision-maker Dispo - inpatient for above History of Present Illness History of Present Illness Patient is 71-year-old male with no stated past medical history, who presents with complaints of generalized swelling over the past couple weeks. Patient also reports dyspnea on exertion and progressive weakness. States he has not seen a physician in over 50 years. Today he finally went to [facility] walk-in clinic, and was referred to [facility] ED. Labs on admission showed hemoglobin 9.9, hematocrit 31.7, BUN 27, creatinine 1.9, BNP 28,988. Chest x-ray showed cardiomegaly without focal airspace consolidation. Will admit patient for further medical management. 06/25: Notes historically he has a younger brother that of kidney disease father and older brother had heart disease. Still short of breath requiring sitting up. Legs are still swollen. Creatinine the same. Awaiting echocardiogram and further IV diuresis will order renal ultrasound as patient notes no history of renal disease though is the first time he seen a physician in a long time. By my interpretation EKG sinus rate of 79 bpm MT interval 310, leftward axis meets criteria for LVH T wave flattening and anterior and inferior leads no T WI, no ST segment elevations or depressions. QTC 444 06/26: Still swollen positive for orthopnea. Getting renal ultrasound currently. Still feeling weak. 06/27,. penile edema, scrotal edema, discomfortable, will place jockstrap, needs support still diuresing, plan DC soon, Vitals/I&O Vitals/I&O: Vital Signs Date Time Temp Pulse Resp B/P (MAP) Pulse Ox O2 Delivery O2 Flow Rate FiO2 06/27/21 11:31 97.7 74 22 113/68 (83) Room Air 97.7 06/27/21 07:00 95 I & O 4/06/1406/26/21 06/27/21 15:00 23:00 07:00 Intake Total 710 ml 220 ml 0 ml Output Total 1750 ml 600 ml Balance 710 ml -1530 ml -600 ml Physical Exam General: Alert, Oriented X3 Heart: Regular rate Lungs: Crackles Abdomen: Soft Extremities: Other (1-2+ pitting edema) Skin: No rashes, No breakdown, No significant lesion Labs Labs: Laboratory Tests Test 06/27/21 04:05 Sodium Level 141 mmol/L (136-145) Potassium Level 3.5 mmol/L (3.5-5.1) Chloride Level 108 mmol/L (98-107) Carbon Dioxide Level 23 mmol/L (21-32) Anion Gap 10 (6-14) Blood Urea Nitrogen 27 mg/dL (8-26) Creatinine 1.7 mg/dL (0.7-1.3) Estimated GFR (Cockcroft-Gault) 48.2 Glucose Level 80 mg/dL (70-99) Calcium Level 8.4 mg/dL (8.5-10.1) Assessment and Plan Assessmemt and Plan Problems Medical Problems: (1) Anasarca Status: Acute (2) Congestive heart failure Status: Acute (3) Renal insufficiency Status: Acute Comment Review of Relevant I have reviewed the following items delfina (where applicable) has been applied. Medications: Current Medications Medications (Trade) Dose Ordered Sig/Vidhi Route PRN Reason Start Time Stop Time Status Last Admin Dose Admin Tamsulosin HCl (Flomax) 0.4 mg QHS PO 06/26/21 21:00 06/26/21 20:51 Justifications for Admission Other Justification MERY WRIGHT MD Jun 27, 2021 15:09
[2021-06-27 15:45] VITALS: BP 123/70
[2021-06-27] MEDS ORDERED: POTASSIUM CHLORIDE 20 MEQ TABLET.ER. PO ONE (16:00)
--- NOTE | 2021-06-27 16:32 | PDOC ---
PROGRESS NOTES Date of Service: DATE: 06/27/21 TIME: 16:31 Subjective Subjective Dyspnea and edema improved Objective Objective Vital Signs Date Time Temp Pulse Resp B/P (MAP) Pulse Ox O2 Delivery O2 Flow Rate FiO2 06/27/21 15:45 97.7 78 22 123/70 (87) 99 Room Air 97.7 Intake and Output 06/27/21 07:00 Intake Total 930 ml Output Total 2350 ml Balance -1420 ml Intake Oral 930 ml Output Urine Total 2350 ml Physical Exam Abdomen: Soft Heart: Regular rate Extremities: Other (1-2+ pitting edema) General: Alert, Oriented X3 HEENT: Atraumatic Lungs: Other (Bilateral basal crepitations) Neuro: Normal speech Psych/Mental Status: Mental status NL Skin: No rashes, No breakdown, No significant lesion Assessment Assessment 1. Congestive heart failure, most probably acute on chronic diastolic. Diuresing well with Lasix. Possible change to p.o. tomorrow. Check 2D echo to assess LV systolic function. Plan ischemic evaluation as an outpatient. 2. Acute renal insufficiency: Consider nephrology consultation. Monitor BUN/creatinine closely with diuresis 3. Normocytic anemia Plan Plan of Care Problems Medical Problems: (1) Anasarca Status: Acute (2) Congestive heart failure Status: Acute (3) Renal insufficiency Status: Acute Comment Review of Relevant I have reviewed the following items delfina (where applicable) has been applied. Labs Laboratory Tests Test 06/27/21 04:05 Sodium Level 141 mmol/L (136-145) Potassium Level 3.5 mmol/L (3.5-5.1) Chloride Level 108 mmol/L (98-107) Carbon Dioxide Level 23 mmol/L (21-32) Anion Gap 10 (6-14) Blood Urea Nitrogen 27 mg/dL (8-26) Creatinine 1.7 mg/dL (0.7-1.3) Estimated GFR (Cockcroft-Gault) 48.2 Glucose Level 80 mg/dL (70-99) Calcium Level 8.4 mg/dL (8.5-10.1) Microbiology 06/26/21 Urine Culture - Final, Complete Medications Current Medications Furosemide (Lasix) 60 mg DAILY IVP Last administered on 06/27/21at 15:27; Start 06/27/21 at 16:00 Perflutren Protein Type A Microsphe (Optison) 0.66 mg 1X ONCE IV ; Start 06/27/21 at 07:45; Stop 06/27/21 at 07:47; Status DC Potassium Chloride (Klor-Con) 40 meq 1X ONCE PO Last administered on 06/27/21at 15:28; Start 06/27/21 at 16:00; Stop 06/27/21 at 16:01; Status DC Tamsulosin HCl (Flomax) 0.4 mg QHS PO Last administered on 06/26/21at 20:51; Start 06/26/21 at 21:00 Vitals/I & O Vital Sign - Last 24 Hours 06/26/21 06/26/21 06/26/21 06/27/21 19:51 20:00 23:14 03:24 Temp 97.8 98.3 98.5 97.8 98.3 98.5 Pulse 77 76 76 Resp 16 16 18 B/P (MAP) 123/60 (81) 127/70 (89) 131/73 (92) Pulse Ox 99 100 100 O2 Delivery Room Air Room Air Room Air Room Air 06/27/21 06/27/21 06/27/21 06/27/21 07:00 07:00 11:31 15:45 Temp 98.2 97.7 97.7 98.2 97.7 97.7 Pulse 85 74 78 Resp 18 22 B/P (MAP) 136/72 (93) 113/68 (83) 123/70 (87) Pulse Ox 95 99 O2 Delivery Room Air Room Air Room Air Room Air Intake and Output 06/26/21 06/26/21 06/27/21 15:00 23:00 07:00 Intake Total 710 ml 220 ml 0 ml Output Total 1750 ml 600 ml Balance 710 ml -1530 ml -600 ml MI PRICE MD Jun 27, 2021 16:32
[2021-06-27 18:58] VITALS: BP 119/60
[2021-06-27] MEDS: TAMSULOSIN 0.4 MG CAP.ER.24H. PO SCH (19:56)
[2021-06-27 22:37] VITALS: BP 128/70
[2021-06-28 02:42] VITALS: BP 122/76
[2021-06-28] MEDS: HEPARIN for SUB-Q USE 5,000 UNIT/ML VIAL. SQ SCH (04:56)
[2021-06-28 07:00] VITALS: BP 125/62
[2021-06-28] MEDS ORDERED: PERFLUTREN PROTEIN-A MICROSPHR 0.22 MG/ML 3 ML VIAL. IV ONE (07:00)
[2021-06-28 09:02] LABS: CALCIUM 8.6 mg/dL (8.5-10.1); CREATININE 1.6 mg/dL (0.7-1.3); GFR 51.7; POTASSIUM 3.7 mmol/L (3.5-5.1)
[2021-06-28] MEDS: FUROSEMIDE 40 MG/4 ML VIAL. IVP SCH (09:23)
--- NOTE | 2021-06-28 10:23 | PDOC ---
MARQUISE ARCE BANKER MASON 06/28/21 1023: CARDIO Progress Notes Date and Time Date of Service 06/28/21 Time of Evaluation 1115 Subjective Subjective: No Chest Pain, No Palpitations, No Dizziness, Other (edema improved ) Vitals Vitals Vital Signs Date Time Temp Pulse Resp B/P (MAP) Pulse Ox O2 Delivery O2 Flow Rate FiO2 06/28/21 08:00 Room Air 06/28/21 07:00 97.5 70 18 125/62 (83) 96 97.5 Weight Weight [ ] Input and Output Intake and Output Intake and Output 06/28/21 07:00 Intake Total 1520 ml Output Total 3500 ml Balance -1980 ml Intake Oral 1520 ml Output Urine Total 3500 ml # Bowel Movements 1 Laboratory Labs Laboratory Tests Test 06/28/21 07:15 Sodium Level 143 mmol/L (136-145) Potassium Level 3.7 mmol/L (3.5-5.1) Chloride Level 108 mmol/L (98-107) Carbon Dioxide Level 28 mmol/L (21-32) Anion Gap 7 (6-14) Blood Urea Nitrogen 23 mg/dL (8-26) Creatinine 1.6 mg/dL (0.7-1.3) Estimated GFR (Cockcroft-Gault) 51.7 Glucose Level 76 mg/dL (70-99) Calcium Level 8.6 mg/dL (8.5-10.1) Iron Level 26 ug/dL (65-175) Total Iron Binding Capacity 247 ug/dL (250-450) Iron Saturation 11 % (15-34) Microbiology Micro Microbiology 06/26/21 Urine Culture - Final, Complete Physical Exam HEENT: Neck Supple W Full Motion LUNGS: Other (diminished bases) Heart: RRR Abdomen: Soft N/T Extremities: Other (1-2+ bilateral LE edema ) Neurology: alert, oriented, follow commands Assessment Assessment 1. Acute on chronic systolic CHF; Diuresing well with Lasix; convert to oral. 2. Cardiomyopathy; echo shows severe LV dysfunction with an EF of 25% with mild to moderate aortic regurgitation and mild to moderate tricuspid regurgitation. This finding was discussed with patient 3. Acute renal insufficiency: improved. 4. Normocytic anemia Recommendations Convert Lasix to oral Add Aldactone and Coreg for HF optimization No EDI/ARB with low end blood pressure Add ASA Will arrange for cardiac catheterization on an outpatient basis with Dr. Horton in 2 weeks. Justicifation of Admission Dx: Justifications for Admission: Justification of Admission Dx: Yes Comments: Acute on chronic probable diastolic CHF MI HORTON MD 06/28/21 1636: CARDIO Progress Notes Assessment Assessment Patient seen and examined. Agree with [employer] REPA[employer] MANAGER's assessment plan. Acute on chronic systolic heart failure better compensated. 2D echo showed LVEF 25%. Agree with starting Coreg and spironolactone Could not start ACEI/Entresto due to marginal blood pressure -we will readdress this as outpatient Plan cardiac catheterization to rule out ischemic etiology for cardiomyopathy in 2 weeks MARQUISE ARCE APRN Jun 28, 2021 10:23 MI HORTON MD Jun 28, 2021 16:36
[2021-06-28 11:00] VITALS: BP 100/59
[2021-06-28] MEDS ORDERED: TAMS0.4C97 PO (13:08)
[2021-06-28] MEDS ORDERED: FURO-68 PO (13:08)
[2021-06-28] MEDS ORDERED: POTA10TA12 PO (13:10)
--- NOTE | 2021-06-28 13:12 | SNU/HH DC ---
DISCHARGE WITH HOME HEALTH DISCHARGE INFORMATION: Discharge Date: Jun 28, 2021 Final Diagnosis: BPH CHF scrotal edema Problems Medical Problems: (1) Anasarca Status: Acute (2) Congestive heart failure Status: Acute (3) Renal insufficiency Status: Acute Condition on Discharge: Stable CODE STATUS: Code Status: DNR/DNI HOME HEALTH: Face to Face: I certify this patient is under my care and that I had a face to face encounter that meets the physician face to face encounter requirements with this patient on 06/28/21 Medical Complications: CHF RN For Eval/Treatment: Yes Physical Therapy For: Evalulation/Treatment Occupational Therapy For: Evaluation/Treatment Pt Meets Homebound Status: Unsteady balance w/ amb,, Limited distance walking POST DISCHARGE ORDERS: Activity Instructions for Disc: No restrictions Weight Bearing Status after Di: No restrictions DIET AFTER DISCHARGE: Cardiac (low sodium) FOLLOW-UP: Follow up with: Scientific Intake, TREATMENT/EQUIPMENT ORDERS: Adaptive Equipment Issued: None CERTIFICATION STATEMENT: Certification Statement: Certification Statement: Based on the above finding, I certify that this patient is confined to the home and needs intermittent assisted care, physical therapy and/or speech therapy, or continues to need occupational therapy.~ This patient is under my care, and I have initiated the establishment of the plan of care.~ This patient will be followed by myself or a community physician who will periodically review the plan of care. Home Meds Active Scripts Potassium Chloride (KLOR-CON 10) 10 Meq Tablet.er, 1 TAB PO DAILY for on Lasix, for 30 Days, #30 TAB 0 Refills Prov:MERY WRIGHT MD 06/28/21 Furosemide (LASIX) 40 Mg Tablet, 1 TAB PO DAILY for CHF for 30 Days, #30 TAB 0 Refills Prov:MERY WRIGHT MD 06/28/21 Tamsulosin Hcl (FLOMAX) 0.4 Mg Cap.er.24h, 0.4 MG PO QHS for BPH, #30 CAP.SR Prov:MERY WRIGHT MD 06/28/21 MERY WRIGHT MD Jun 28, 2021 13:12
[2021-06-28] MEDS ORDERED: POTASSIUM CHLORIDE 20 MEQ TABLET.ER. PO ONE (13:15)
--- NOTE | 2021-06-28 13:15 | PDOC3 ---
Discharge Summary Visit Information Date of Admission: Jun 24, 2021 Date of Discharge: Jun 28, 2021 Final Diagnosis New onset CHF Normocytic anemia [place] - likely vasomotor nephropathy. Will check renal ultrasound for obstructive or medical renal disease Plan: Will place consultation to cardiology Echocardiogram pending If his renal function began to worsen with IV Lasix we will need to consult nephrology for CKD 3b in setting of heart failure Problems Medical Problems: (1) Anasarca Status: Acute (2) Congestive heart failure Status: Acute (3) Renal insufficiency Status: Acute Brief Hospital Course Allergies Allergies Coded Allergies Type Severity Reaction Last Updated Verified No Known Drug Allergies 06/24/21 No Vital Signs Vital Signs Date Time Temp Pulse Resp B/P (MAP) Pulse Ox O2 Delivery O2 Flow Rate FiO2 06/28/21 11:00 98.1 74 18 100/59 (73) 96 Room Air 98.1 Lab Results Laboratory Tests Test 06/27/21 04:05 06/28/21 07:15 Sodium Level 141 mmol/L (136-145) 143 mmol/L (136-145) Potassium Level 3.5 mmol/L (3.5-5.1) 3.7 mmol/L (3.5-5.1) Chloride Level 108 mmol/L (98-107) 108 mmol/L (98-107) Carbon Dioxide Level 23 mmol/L (21-32) 28 mmol/L (21-32) Anion Gap 10 (6-14) 7 (6-14) Blood Urea Nitrogen 27 mg/dL (8-26) 23 mg/dL (8-26) Creatinine 1.7 mg/dL (0.7-1.3) 1.6 mg/dL (0.7-1.3) Estimated GFR (Cockcroft-Gault) 48.2 51.7 Glucose Level 80 mg/dL (70-99) 76 mg/dL (70-99) Calcium Level 8.4 mg/dL (8.5-10.1) 8.6 mg/dL (8.5-10.1) Iron Level 26 ug/dL (65-175) Total Iron Binding Capacity 247 ug/dL (250-450) Iron Saturation 11 % (15-34) Laboratory Tests Test 06/28/21 07:15 Sodium Level 143 mmol/L (136-145) Potassium Level 3.7 mmol/L (3.5-5.1) Chloride Level 108 mmol/L (98-107) Carbon Dioxide Level 28 mmol/L (21-32) Anion Gap 7 (6-14) Blood Urea Nitrogen 23 mg/dL (8-26) Creatinine 1.6 mg/dL (0.7-1.3) Estimated GFR (Cockcroft-Gault) 51.7 Glucose Level 76 mg/dL (70-99) Calcium Level 8.6 mg/dL (8.5-10.1) Iron Level 26 ug/dL (65-175) Total Iron Binding Capacity 247 ug/dL (250-450) Iron Saturation 11 % (15-34) Brief Hospital Course Mr. Holloway is a 71 old, no insurance, has taken not meds, admit for worsneing generalized swelling over the past couple weeks. NOted dyspnea on exertion and progressive weakness. on day of admit, went to first doctor appt in [facility] years af the [facility] [place] [facility], Labs on admission showed hemoglobin 9.9, hematocrit 31.7, BUN 27, creatinine 1.9, BNP 28,988. Cr inmproed with laix, potassium OK, MCV low but not iron deficient, scrotal edema, penile edema, better with IV lasix, was getting 40 iv, I changed to 60 iv Discharge Information Condition at Discharge: Improved Follow Up: Weeks Disposition/Orders: D/C to Home w/ HH Scheduled Furosemide (Lasix) 40 Mg Tablet, 1 TAB PO DAILY for CHF for 30 Days, #30 Ref 0 Prescribed by: MERY WRIGHT on 06/28/21 1308 Potassium Chloride (Klor-Con 10) 10 Meq Tablet.er, 1 TAB PO DAILY for on Lasix, for 30 Days, #30 Ref 0 Prescribed by: MERY WRIGHT on 06/28/21 1310 Tamsulosin Hcl (Flomax) 0.4 Mg Cap.er.24h, 0.4 MG PO QHS for BPH, #30 Prescribed by: MERY WRIGHT on 06/28/21 1308 Patient Instructions Patient Instructions face to face discussed 34 minutes Justicifation of Admission Dx: Justifications for Admission: Justification of Admission Dx: Yes (CHF) MERY WRIGHT MD Jun 28, 2021 13:15
[2021-06-28 15:00] VITALS: BP 115/63
--- NOTE | 2021-06-28 15:44 | CARD ---
MR#: [id number] Date of Study: 06/28/2021 Ordering Physician: ALEX MASSEY, Referring Physician: ALEX MASSEY, Tech: Chaim Parekh CASEY APPROVED REPORT EXAM: Two-dimensional and M-mode echocardiogram with Doppler and color Doppler. Other Information Quality : GoodHR: 77bpm Rhythm : NSR INDICATION Cardiomyopathy RISK FACTORS Hypertension Obesity Hyperlipidemia 2D DIMENSIONS RVDd5.8 (2.9-3.5cm)Left Atrium(2D)5.6 (1.6-4.0cm) IVSd1.6 (0.7-1.1cm)Aortic Root(2D)4.9 (2.0-3.7cm) LVDd6.6 (3.9-5.9cm)LVOT Diameter2.8 (1.8-2.4cm) PWd1.3 (0.7-1.1cm)LVDs5.4 (2.5-4.0cm) FS (%) 18.7 %SV84.8 ml LVEF(%)37.7 (>50%) Aortic Valve AoV Peak Beka.194.7cm/sAoV VTI35.7cm AO Peak GR.15.2mmHgLVOT Peak Beka.152.8cm/s AO Mean GR.7mmHgAVA (VMAX)4.85cm2 AI P 1/2 [id number] Mitral Valve MV E Bhbtizec75.6cm/sMV DECEL [id number] MV A Zfewibik74.2cm/sE/A Ratio1.3 Pulmonary Valve PV Peak Rjyqsfrh275.0cm/s Tricuspid Valve TR P. Mbelajsv357fz/sTR Peak Gr.35mmHg LEFT VENTRICLE The Left Ventricle is moderately dilated. There is mild to moderate concentric left ventricular hyper trophy. The left ventricular systolic function is severely impaired. Estimated ejection fraction 25% . There is global hypokinesis of the left ventricle. RIGHT VENTRICLE The right ventricle is mildly dilated. There is normal right ventricular wall thickness. Systolic fun ction is moderately reduced. ATRIA The left atrium is moderately dilated. The right atrium is severely dilated. The interatrial septum i s intact with no evidence for an atrial septal defect or patent foramen ovale as noted on 2-D or Dopp ler imaging. AORTIC VALVE The aortic valve is normal in structure and function. Doppler and Color Flow revealed mild to moderat e aortic regurgitation. There is no significant aortic valvular stenosis. MITRAL VALVE The mitral valve is normal in structure and function. There is no evidence of mitral valve prolapse. There is no mitral valve stenosis. Doppler and Color Flow revealed trace mitral valve regurgitation. TRICUSPID VALVE The tricuspid valve is normal in structure and function. Doppler and Color Flow revealed mild to mode rate tricuspid regurgitation. Estimated PAP 45 mmHg. There is no tricuspid valve stenosis. GREAT VESSELS The aortic root is moderately enlarged. The ascending aorta is Moderately dilated. The IVC is normal in size and collapses <50% with inspiration. PERICARDIAL EFFUSION There is no evidence of significant pericardial effusion. Critical Notification Critical Value: No <Conclusion> The left ventricular systolic function is severely impaired. Estimated ejection fraction 25%. Mild to moderate aortic regurgitation. Mild to moderate tricuspid regurgitation. Estimated PAP 45 mmHg. There is no evidence of significant pericardial effusion. Signed by : Miles Horton, Electronically Approved : 06/28/2021 15:43:27
[2021-06-28] MEDS ORDERED: ASPI-886 PO (16:13)
[2021-06-28] MEDS ORDERED: SPIR25TA PO (16:13)
[2021-06-28] MEDS ORDERED: CARV3.12 PO (16:13)
--- NOTE | 2021-06-28 17:43 | NUR ---
DISCHARGED PATIENT TO HOME. PATIENT REFUSED HOME HEALTH SERVICES DUE TO NO HEALTH INSURANCE. PIV AND HEART MONITOR REMOVED. ESCORTED PATIENT OFF UNIT INTO A PRIVATE VEHICLE.
[2021-06-29] MEDS ORDERED: FUROSEMIDE 40 MG TABLET. PO SCH (09:00)
== END 2021-06-28 17:45 | disposition home health service (06) | DRG 291 ==
LOC: ER 15:56 → 6 SOUTH 17:20
PROVIDERS: ADMIT Family Medicine; ATTEND Family Medicine
DX: I50.43 Acute on chronic combined systolic (congestive) and diastolic (congestive) heart failure (principal); N17.0 Acute kidney failure with tubular necrosis; I42.9 Cardiomyopathy, unspecified; D64.9 Anemia, unspecified; I07.1 Rheumatic tricuspid insufficiency; I35.1 Nonrheumatic aortic (valve) insufficiency; N48.89 Other specified disorders of penis; N50.89 Other specified disorders of the male genital organs; Z82.49 Family history of ischemic heart disease and other diseases of the circulatory system; Z84.1 Family history of disorders of kidney and ureter; Z66 Do not resuscitate; N18.32 Chronic kidney disease, stage 3b
CPT/HCPCS: 36415; 71045; 76770; 80048; 80053; 80061; 81001; 82550; 83036; 83540; 83550; 83735; 83880; 84100; 84443; 84484; 85025; 85610; 85730; 87086; 93005; 93306; J0360; J1644; J1940; 97110-GP; 97116-GP; 97530-GP; 99285-25; C8929; G0378